=== PATIENT | male | born 1980 | race Caucasian/White ===

== ENCOUNTER 2019-02-17 14:25 | Emergency (ER) | payer MEDICAID ==
[~2019-02-17] VITALS: Ht 177.8 cm; Wt 71.4 kg
[2019-02-17 14:35] VITALS: BP 125/80
--- NOTE | 2019-02-17 14:41 | NUR ---
THIS IS A 38 YO MALE COMING IN FOR TOOTH PAIN/PRESSURE IN UPPER LEFT SIDE OF MOUTH. PATIENT DENIES EATING ANYTHING HARD, NO SPECIFIC EVENT LED TO THIS PAIN.
== END 2019-02-17 15:03 | disposition home or self-care (01) ==
LOC: ED 14:40
DX: K02.9 Dental caries, unspecified (principal); K05.10 Chronic gingivitis, plaque induced; K08.89 Other specified disorders of teeth and supporting structures; F17.200 Nicotine dependence, unspecified, uncomplicated
CPT/HCPCS: 99283

== ENCOUNTER 2019-03-24 20:22 | Emergency (ER) | payer MEDICAID ==
[~2019-03-24] VITALS: Ht 177.8 cm; Wt 69.4 kg
[2019-03-24 20:25] VITALS: BP 133/80
--- NOTE | 2019-03-24 20:56 | NUR ---
PT PRESENTED WITH C/O DENTAL PAIN ON UPPER LEFT SIDE, RADIATES UP FACE.
[2019-03-24] MEDS ORDERED: LIDOCAINE-MPF 1%, 5ML ONE (20:58)
[2019-03-24] MEDS ORDERED: BUPIVACAINE/PF 0.5% ONE (20:59)
[2019-03-24] MEDS ORDERED: LIDOCAINE 1%, 10ML INFIL ONE (21:00)
[2019-03-24] MEDS ORDERED: BUPIVACAINE 0.25% INFIL ONE (21:00)
[2019-03-24] MEDS ORDERED: BUPIVACAINE 0.25% ONE (21:01)
== END 2019-03-24 21:17 ==
LOC: ED 21:11
DX: K02.9 Dental caries, unspecified (principal); K08.89 Other specified disorders of teeth and supporting structures; F17.210 Nicotine dependence, cigarettes, uncomplicated; Z72.9 Problem related to lifestyle, unspecified
CPT/HCPCS: 64402; 99284

== ENCOUNTER 2019-03-26 05:56 | Emergency (ER) | payer MEDICAID ==
[~2019-03-26] VITALS: Ht 177.8 cm; Wt 70.0 kg
[2019-03-26 06:01] VITALS: BP 140/80
[2019-03-26] MEDS ORDERED: KETOROLAC 30 MG/1 ML ONE (06:22)
--- NOTE | 2019-03-26 06:28 | NUR ---
BURAK RUBALCAVA AT BEDSIDE PERFORMING A NERVE BLOCK. PT ALSO MEDICATED PER EMAR. 5 RIGHTS ADDRESSED
[2019-03-26] MEDS ORDERED: KETOROLAC 30 MG/1 ML IM ONE (06:30)
--- NOTE | 2019-03-26 06:52 | NUR ---
Patient/Caregiver given discharge instructions and they have confirmed that they understand the instructions. Patient ambulatory with steady gait.
== END 2019-03-26 06:54 | disposition home or self-care (01) ==
LOC: ED 06:13
DX: K08.89 Other specified disorders of teeth and supporting structures (principal); F17.210 Nicotine dependence, cigarettes, uncomplicated
CPT/HCPCS: 64400; 96372; 99284; J1885

== ENCOUNTER 2020-03-29 21:24 | Emergency (ER) | payer MEDICAID ==
[~2020-03-29] VITALS: Ht 177.8 cm; Wt 78.0 kg
[2020-03-29 21:34] VITALS: BP 120/88
[2020-03-29] MEDS ORDERED: ONDANSETRON 2MG/ML, 2ML ONE (21:50)
[2020-03-29] MEDS ORDERED: LORazepam 2 MG/ML, 1ML ONE (21:50)
[2020-03-29] MEDS ORDERED: PROMETHAZINE 25 MG/ML, 1ML ONE (21:50)
[2020-03-29] MEDS ORDERED: ONDANSETRON 2MG/ML, 2ML IVPush ONE (22:00)
[2020-03-29] MEDS ORDERED: THIAMINE 100MG TABLET PO ONE (22:00)
[2020-03-29] MEDS ORDERED: SODIUM CHLORIDE FLUSH 10ML SYR IVF ONE (22:00)
[2020-03-29] MEDS ORDERED: LORazepam 2 MG/ML, 1ML IVPush PRN (22:00)
[2020-03-29] MEDS ORDERED: SODIUM CHLORIDE 0.9% 1,000ML IVBOLUS ONE (22:00)
[2020-03-29] MEDS ORDERED: PROMETHAZINE 25 MG/ML, 1ML IM ONE (22:00)
[2020-03-29 22:18] LABS: BASOPHILS % (AUTO) 1 % (0-1); EOSINOPHILS % (AUTO) 2 % (1-7); LYMPHOCYTES % (AUTO) 31 % (22-44); MEAN CORPUSCULAR HEMOGLOBIN 31.3 pg (27.5-34.5); MEAN CORPUSCULAR HGB CONC 34.1 g/dL (33.2-36.2); MEAN PLATELET VOLUME 8.9 fL (7.4-10.4); MONOCYTES % (AUTO) 10 % (2-9); NEUTROPHILS % (AUTO) 56 % (42-75); PLATELET COUNT 91 x10^3/uL (130-400); RED BLOOD COUNT 5.47 x10^6/uL (4.38-5.82); RED CELL DISTRIBUTION WIDTH 13.8 % (9.4-14.8)
[2020-03-29 22:23] LABS: MD NO
[2020-03-29 22:24] LABS: ALANINE AMINOTRANSFERASE 65 U/L (12-78); ANION GAP 15 mmol/L (5-15); CALCIUM 8.4 mg/dL (8.5-10.1); CHLORIDE 100 mmol/L (98-107); CREATININE 0.71 mg/dL (0.7-1.3)
[2020-03-29 22:26] LABS: ALKALINE PHOSPHATASE 57 U/L (45-117); BILIRUBIN,TOTAL 0.9 mg/dL (0.2-1.0); TOTAL PROTEIN 7.8 g/dL (6.4-8.2)
== END 2020-03-30 00:13 | disposition home or self-care (01) ==
LOC: ED 21:54
DX: K29.20 Alcoholic gastritis without bleeding (principal); R11.2 Nausea with vomiting, unspecified; R10.13 Epigastric pain; R10.12 Left upper quadrant pain; F10.129 Alcohol abuse with intoxication, unspecified; F17.210 Nicotine dependence, cigarettes, uncomplicated; Y90.0 Blood alcohol level of less than 20 mg/100 ml
CPT/HCPCS: 36415; 80053; 80320; 83690; 85025; 96361; 96372; 96374; 96375; 99284; 99406; J2060; J2405; J2550; J7030; G0480

== ENCOUNTER 2020-06-03 18:45 | Inpatient (IN) | payer MEDICAID ==
[~2020-06-03] VITALS: Ht 177.8 cm; Wt 66.8 kg
[2020-06-03] MEDS ORDERED: ONDANSETRON ODT 4 MG PO ONE (19:00)
[2020-06-03 19:25] LABS: BASOPHILS % (AUTO) 0 % (0-1); EOSINOPHILS % (AUTO) 0 % (1-7); LYMPHOCYTES % (AUTO) 13 % (22-44); MEAN CORPUSCULAR HEMOGLOBIN 32.4 pg (27.5-34.5); MEAN PLATELET VOLUME 8.6 fL (7.4-10.4); MONOCYTES % (AUTO) 6 % (2-9); NEUTROPHILS % (AUTO) 82 % (42-75); PLATELET COUNT 261 x10^3/uL (130-400); RED BLOOD COUNT 5.39 x10^6/uL (4.38-5.82); RED CELL DISTRIBUTION WIDTH 15.2 % (9.4-14.8)
[2020-06-03 19:27] LABS: MD NO
[2020-06-03 19:37] LABS: ALANINE AMINOTRANSFERASE 54 U/L (12-78); ALBUMIN 5.1 g/dL (3.4-5.0); ANION GAP 21 mmol/L (5-15); CALCIUM 9.6 mg/dL (8.5-10.1); CHLORIDE 97 mmol/L (98-107); CREATININE 1.25 mg/dL (0.7-1.3)
[2020-06-03 19:39] LABS: ALKALINE PHOSPHATASE 66 U/L (45-117); BILIRUBIN,TOTAL 1.3 mg/dL (0.2-1.0); TOTAL PROTEIN 9.2 g/dL (6.4-8.2)
[2020-06-03] MEDS ORDERED: MAGNESIUM SULFATE 1 GM, THIAMINE 100 MG, FOLIC ACID 1 MG, MVI ADULT 10 ML in SODIUM CHL... IV ONE (20:30)
[2020-06-03] MEDS ORDERED: ONDANSETRON 2MG/ML, 2ML IVPush ONE (20:30)
[2020-06-03] MEDS ORDERED: SODIUM CHLORIDE 0.9% 1,000ML IVBOLUS ONE (20:30)
[2020-06-03] MEDS ORDERED: LORazepam 2 MG/ML, 1ML IVPush ONE ×2 (20:30)
[2020-06-03] MEDS ORDERED: MAGNESIUM SULFATE 1 GM, THIAMINE 100 MG, FOLIC ACID 1 MG in SODIUM CHLORIDE 0.9% 1,000 ML IV ONE (20:46)
[2020-06-03] MEDS ORDERED: MAGNESIUM SULFATE PMX 2GM/50ML 0 ML ONE (20:57)
[2020-06-03] MEDS ORDERED: ONDANSETRON 2MG/ML, 2ML ONE (20:57)
[2020-06-03] MEDS ORDERED: LORazepam 2 MG/ML, 1ML ONE ×2 (20:57→22:15)
--- NOTE | 2020-06-03 21:12 | NUR ---
PT IN BED . VERY IMPULSUVE. STATES THAT HE HASNT DRANK IN 3 DAYS .
[2020-06-03] MEDS ORDERED: METOCLOPRAMIDE 5 MG/ML, 2ML ONE (22:25)
[2020-06-03] MEDS ORDERED: METOCLOPRAMIDE 5 MG/ML, 2ML IVPush ONE (22:30)
--- NOTE | 2020-06-03 22:36 | NUR ---
Immigration Manager rosalio'd report from [place]. Patient noted to still be shaking his legs and feeling nasuea. Patient medicated per JUN.
[2020-06-03 23:02] LABS: MICROSCOPIC AUTO
[2020-06-03 23:20] VITALS: BP 126/79
[2020-06-04 01:13] VITALS: BP 138/80
[2020-06-04 05:35] LABS: BASOPHILS % (AUTO) 0 % (0-1); EOSINOPHILS % (AUTO) 0 % (1-7); LYMPHOCYTES % (AUTO) 17 % (22-44); MEAN CORPUSCULAR HEMOGLOBIN 31.7 pg (27.5-34.5); MEAN CORPUSCULAR HGB CONC 34.5 g/dL (33.2-36.2); MEAN PLATELET VOLUME 8.5 fL (7.4-10.4); MONOCYTES % (AUTO) 12 % (2-9); NEUTROPHILS % (AUTO) 71 % (42-75); PLATELET COUNT 193 x10^3/uL (130-400); RED BLOOD COUNT 4.57 x10^6/uL (4.38-5.82); RED CELL DISTRIBUTION WIDTH 15.1 % (9.4-14.8)
[2020-06-04 05:47] LABS: ANION GAP 7 mmol/L (5-15); CALCIUM 8.3 mg/dL (8.5-10.1); CHLORIDE 104 mmol/L (98-107); CREATININE 0.84 mg/dL (0.7-1.3)
[2020-06-04 06:05] LABS: MD SCAN
[2020-06-04 07:04] VITALS: BP 114/64
[2020-06-04] MEDS: POTASSIUM CHLORIDE 20 MEQ, MAGNESIUM SULFATE 1 GM, THIAMINE 200 MG, FOLIC ACID 1 MG in ... IV SCH (08:36)
[2020-06-04] MEDS: HEPARIN 5,000 UNITS/ML, 1ML SQ SCH ×2 (08:36→16:55)
[2020-06-04] MEDS: LORazepam 2 MG/ML, 1ML IVPush PRN ×4 (08:45→20:47)
[2020-06-04] MEDS: ONDANSETRON 2MG/ML, 2ML IVPush PRN ×2 (08:52→20:46)
[2020-06-04 12:26] VITALS: BP 148/77
[2020-06-04] MEDS ORDERED: MAALOX/HYOSCYAMINE/LIDOCAINE 45 ML BTL PO ONE (15:52)
[2020-06-04] MEDS ORDERED: SUCRALFATE 1 GM/10 ML UDC PO SCH (16:00)
[2020-06-04] MEDS ORDERED: SUCRALFATE 1 GM/10 ML UDC PO PRN (16:30)
[2020-06-04] MEDS: OXYcodone/APAP 5/325MG TABLET PO PRN ×2 (16:55→20:47)
[2020-06-04 19:52] VITALS: BP 140/86
[2020-06-05 00:20] VITALS: BP 114/66
[2020-06-05] MEDS: HEPARIN 5,000 UNITS/ML, 1ML SQ SCH ×3 (01:27→16:23)
[2020-06-05] MEDS: MORPHINE SULFATE 4 MG/ML, 1ML IVPush PRN ×3 (08:47→17:42)
[2020-06-05 08:57] VITALS: BP 120/74
[2020-06-05 09:09] LABS: BASOPHILS % (AUTO) 1 % (0-1); EOSINOPHILS % (AUTO) 0 % (1-7); LYMPHOCYTES % (AUTO) 28 % (22-44); MEAN CORPUSCULAR HEMOGLOBIN 31.8 pg (27.5-34.5); MEAN CORPUSCULAR HGB CONC 34.2 g/dL (33.2-36.2); MEAN PLATELET VOLUME 8.7 fL (7.4-10.4); MONOCYTES % (AUTO) 10 % (2-9); NEUTROPHILS % (AUTO) 61 % (42-75); PLATELET COUNT 176 x10^3/uL (130-400); RED BLOOD COUNT 4.62 x10^6/uL (4.38-5.82)
[2020-06-05 09:11] LABS: MD NO
[2020-06-05 09:18] LABS: ALANINE AMINOTRANSFERASE 38 U/L (12-78); ALBUMIN 4.1 g/dL (3.4-5.0); ANION GAP 9 mmol/L (5-15); CALCIUM 8.9 mg/dL (8.5-10.1); CHLORIDE 107 mmol/L (98-107); CREATININE 0.78 mg/dL (0.7-1.3)
[2020-06-05 09:21] LABS: ALKALINE PHOSPHATASE 47 U/L (45-117); BILIRUBIN,TOTAL 2.5 mg/dL (0.2-1.0); TOTAL PROTEIN 7.3 g/dL (6.4-8.2)
[2020-06-05] MEDS: POTASSIUM CHLORIDE 20 MEQ, MAGNESIUM SULFATE 1 GM, THIAMINE 200 MG, FOLIC ACID 1 MG in ... IV SCH (09:52)
[2020-06-05] MEDS ORDERED: OMNIPAQUE 350 MG/ML, 100ML BOTTLE ONE (10:41)
[2020-06-05] MEDS: OXYcodone/APAP 5/325MG TABLET PO PRN ×2 (10:52→22:03)
[2020-06-05] MEDS: PROMETHAZINE 25MG TABLET PO PRN ×2 (10:53→22:02)
[2020-06-05] MEDS: CHLORDIAZEPOXIDE 25 MG CAPSULE PO PRN ×2 (13:32→22:03)
[2020-06-05 13:58] VITALS: BP 117/74
[2020-06-05] MEDS ORDERED: PANTOPRAZOLE 40MG TABLET PO ONE (15:54)
[2020-06-05] MEDS: SUCRALFATE 1 GM/10 ML UDC PO PRN (16:22)
[2020-06-05] MEDS: ONDANSETRON 2MG/ML, 2ML IVPush PRN (17:42)
[2020-06-05 18:56] VITALS: BP 122/79
[2020-06-06] MEDS: HEPARIN 5,000 UNITS/ML, 1ML SQ SCH ×3 (01:00→16:32)
[2020-06-06 01:36] VITALS: BP 119/70
[2020-06-06] MEDS: ONDANSETRON 2MG/ML, 2ML IVPush PRN ×2 (02:33→08:43)
[2020-06-06] MEDS: MORPHINE SULFATE 4 MG/ML, 1ML IVPush PRN (02:34)
[2020-06-06 07:09] LABS: ALANINE AMINOTRANSFERASE 49 U/L (12-78); ALBUMIN 3.9 g/dL (3.4-5.0); ANION GAP 7 mmol/L (5-15); CALCIUM 8.7 mg/dL (8.5-10.1); CHLORIDE 105 mmol/L (98-107); CREATININE 0.82 mg/dL (0.7-1.3)
[2020-06-06 07:11] LABS: ALKALINE PHOSPHATASE 47 U/L (45-117); BILIRUBIN,TOTAL 1.8 mg/dL (0.2-1.0); TOTAL PROTEIN 7.3 g/dL (6.4-8.2)
[2020-06-06 07:15] LABS: BASOPHILS % (AUTO) 1 % (0-1); EOSINOPHILS % (AUTO) 1 % (1-7); LYMPHOCYTES % (AUTO) 47 % (22-44); MEAN CORPUSCULAR HEMOGLOBIN 31.7 pg (27.5-34.5); MEAN CORPUSCULAR HGB CONC 33.8 g/dL (33.2-36.2); MEAN PLATELET VOLUME 9.2 fL (7.4-10.4); MONOCYTES % (AUTO) 11 % (2-9); NEUTROPHILS % (AUTO) 41 % (42-75); PLATELET COUNT 167 x10^3/uL (130-400); RED BLOOD COUNT 4.64 x10^6/uL (4.38-5.82)
[2020-06-06 07:33] LABS: MD NO
[2020-06-06 07:51] VITALS: BP 132/82
[2020-06-06] MEDS: OXYcodone/APAP 5/325MG TABLET PO PRN ×3 (08:43→23:16)
[2020-06-06] MEDS: PANTOPRAZOLE 40MG TABLET PO SCH (08:44)
[2020-06-06] MEDS: CHLORDIAZEPOXIDE 25 MG CAPSULE PO PRN ×2 (12:06→21:09)
[2020-06-06 13:16] VITALS: BP 115/77
[2020-06-06 20:26] VITALS: BP 124/76
[2020-06-06] MEDS: SUCRALFATE 1 GM/10 ML UDC PO PRN (21:09)
[2020-06-07 02:05] VITALS: BP 118/72
[2020-06-07] MEDS: HEPARIN 5,000 UNITS/ML, 1ML SQ SCH ×2 (05:12→12:23)
[2020-06-07] MEDS: PANTOPRAZOLE 40MG TABLET PO SCH (05:12)
[2020-06-07] MEDS: OXYcodone/APAP 5/325MG TABLET PO PRN (06:33)
[2020-06-07] MEDS: CHLORDIAZEPOXIDE 25 MG CAPSULE PO PRN (06:33)
[2020-06-07 07:08] VITALS: BP 120/79
[2020-06-07] MEDS ORDERED: THIAMINE 100MG TABLET PO SCH (09:00)
[2020-06-07] MEDS ORDERED: PANT40TA6 PO (09:00)
[2020-06-07] MEDS ORDERED: THIA100T67 PO (09:00)
[2020-06-07] MEDS ORDERED: FOLIC ACID 1 MG TABLET PO SCH (09:00)
[2020-06-07] MEDS ORDERED: SUCR1ORA5 PO (09:00)
[2020-06-07] MEDS ORDERED: FOLI1TAB32 PO (09:00)
[2020-06-07 10:00] LABS: OCCULT BLOOD POSITIVE (NEGATIVE)
== END 2020-06-07 12:38 | disposition home or self-care (01) | DRG 369 ==
LOC: ED 21:36 → EDIP 22:34 → 4WST 23:15 → DCLOUNGE 06-07 12:29
PROVIDERS: ADMIT Internal Medicine; ATTEND Family Medicine
DX: K22.6 Gastro-esophageal laceration-hemorrhage syndrome (principal); F10.231 Alcohol dependence with withdrawal delirium; M48.54XA Collapsed vertebra, not elsewhere classified, thoracic region, initial encounter for fracture; N44.00 Torsion of testis, unspecified; E86.0 Dehydration; K92.0 Hematemesis; F12.90 Cannabis use, unspecified, uncomplicated; F17.210 Nicotine dependence, cigarettes, uncomplicated; K70.9 Alcoholic liver disease, unspecified; K76.0 Fatty (change of) liver, not elsewhere classified; Z79.899 Other long term (current) drug therapy; Z79.891 Long term (current) use of opiate analgesic; Z79.01 Long term (current) use of anticoagulants; Z71.6 Tobacco abuse counseling
CPT/HCPCS: 36415; 96374; 96375; 96376; 99285; Q0169; 74177; 80048; 80053; 80074; 81001; 82272; 83690; 83735; 84100; 85025; 93005; G0378; J1644; J2405; J3411; J3475; J3480; Q9967; J2060; J2270; J2765; J7030

== ENCOUNTER 2020-06-18 01:32 | Emergency (ER) | payer MEDICAID ==
[~2020-06-18] VITALS: Ht 177.8 cm; Wt 61.5 kg
[~2020-06-18 01:32] MED LIST: FOLI1TAB32 PO; PANT40TA6 PO; SUCR1ORA5 PO; THIA100T67 PO
--- NOTE | 2020-06-18 01:53 | NUR ---
patient BIB [facility] for abdominal pain. bilateral pupils are 5mm. white residue covering tongue. patient reports being alcohol free for ~ 1 year but was recently in [facility] for alcohol withdrawal. call coello in reach. patient has mild tremors on arrival. safety maintained. will continue to monitor.
[2020-06-18] MEDS ORDERED: KETOROLAC 30 MG/1 ML ONE (02:18)
[2020-06-18] MEDS ORDERED: ONDANSETRON 2MG/ML, 2ML ONE (02:19)
[2020-06-18 02:22] LABS: BASOPHILS % (AUTO) 1 % (0-1); MEAN CORPUSCULAR HEMOGLOBIN 32.7 pg (27.5-34.5); MEAN CORPUSCULAR HGB CONC 34.9 g/dL (33.2-36.2)
[2020-06-18 02:25] LABS: EOSINOPHILS % (AUTO) 1 % (1-7); LYMPHOCYTES % (AUTO) 23 % (22-44); MEAN PLATELET VOLUME 8.3 fL (7.4-10.4); MONOCYTES % (AUTO) 6 % (2-9); NEUTROPHILS % (AUTO) 70 % (42-75); PLATELET COUNT 275 x10^3/uL (130-400); RED BLOOD COUNT 5.75 x10^6/uL (4.38-5.82); RED CELL DISTRIBUTION WIDTH 15.6 % (9.4-14.8)
--- NOTE | 2020-06-18 02:27 | NUR ---
1ST CONTACT C PT. LABS DRAWN & SENT. PT REFUSING ATIVAN..."IM NOT ANXIOUS..I NEED SOMETHING FOR MY FUCKING STOMACH PAIN..IS HE NOT GIVING ME ANYTHING BECAUSE IM AN ALCOHOLIC". ATTEMPTING TO CALM PT, AWARE THIS RN WILL ASK FOR PAIN MEDS.
[2020-06-18 02:29] LABS: MD NO
[2020-06-18] MEDS ORDERED: SODIUM CHLORIDE 0.9% 1,000ML IVBOLUS ONE (02:30)
[2020-06-18] MEDS ORDERED: LORazepam 2 MG/ML, 1ML IVPush ONE (02:30)
[2020-06-18] MEDS ORDERED: ONDANSETRON 2MG/ML, 2ML IVPush ONE (02:30)
[2020-06-18] MEDS ORDERED: KETOROLAC 30 MG/1 ML IVPush ONE (02:30)
--- NOTE | 2020-06-18 02:32 | NUR ---
JIMMY, GIRLFRIEND, . PT GIVES PERMISSION TO SPEAK C THIS PERSON.
[2020-06-18 02:33] LABS: ALANINE AMINOTRANSFERASE 82 U/L (12-78); ALBUMIN 4.4 g/dL (3.4-5.0); ANION GAP 14 mmol/L (5-15); CALCIUM 8.5 mg/dL (8.5-10.1); CHLORIDE 106 mmol/L (98-107); CREATININE 0.83 mg/dL (0.7-1.3)
[2020-06-18 02:44] LABS: ALKALINE PHOSPHATASE 82 U/L (45-117); BILIRUBIN,TOTAL 0.8 mg/dL (0.2-1.0); TOTAL PROTEIN 8.6 g/dL (6.4-8.2)
[2020-06-18] MEDS ORDERED: LORazepam 2 MG/ML, 1ML ONE (02:44)
--- NOTE | 2020-06-18 03:04 | NUR ---
patient requesting pain medication. i have notified dr. roberts that patient states pain is now radiating into patient's chest per his report during my rounding. patient is agitated that he is not receiving pain medications at this time. he states he is not intoxicated and is not withdrawing. patient states "you gave me pain medications last time i was here. the doctors gave me percocets". I explained to the patient that pain medication is not a longterm fix for this diagnosis of his esophageal tear and the concern that needs to be discussed is detoxing from alcohol and alcohol cessation. patient becomes agitated and asks for the doctor to come to bedside "because i need pain meds. you gave them to me last time. i want percocets".
--- NOTE | 2020-06-18 03:40 | NUR ---
Dr. Roberts and this RN in to room to discuss patient's repeated requests for percocet's. Dr. Roberts notified patient and fiance at bedside that patient's ETOH level was dangerously high and importance of alcohol cessation. patient complains of worsening pain. recommendations from dr. roberts include PPI and detox rehab program. fiance at bedside agrees and states "i can take him straight to right now because I cant do this anymore". Patient verbally accepts PPI. these will be ordered and resources will be refered to patient for rehab detox facilities for alcohol. safety maintained. call coello in reach. will continue to monitor.
[2020-06-18] MEDS ORDERED: MAALOX/HYOSCYAMINE/LIDOCAINE 45 ML BTL ONE (03:45)
[2020-06-18] MEDS ORDERED: FAMOTIDINE 20 MG/2 ML ONE (03:46)
[2020-06-18] MEDS ORDERED: FAMOTIDINE 20 MG/2 ML IVPush ONE (04:00)
[2020-06-18] MEDS ORDERED: MAALOX/HYOSCYAMINE/LIDOCAINE 45 ML BTL PO ONE (04:00)
--- NOTE | 2020-06-18 04:06 | NUR ---
discharge instructions reviewed with patient and patient's fiance at bedside. no further questions. resource sheet for addiction community resources and behavior/addiction detox facilities provided and reviewed. prescription handed directly to patient who handed it to lisette. patient has steady gait with intermittent minor stumbling on ambulation to lobby. lisette is patient's designated corrugated fastener driver and designated responsible person on discharge. lisette states she is packing a bag for patient and bringing him to [place] today for detox and rehab. This option was also highly recommended from RN and MD during this visit. IV removed per dc protocol. VS remain stable on RA. all personal belongings with patient on dc including cell phone
[2020-06-18 04:09] VITALS: BP 144/68
== END 2020-06-18 04:11 | disposition home or self-care (01) ==
LOC: ED 02:23
DX: K29.20 Alcoholic gastritis without bleeding (principal); F10.10 Alcohol abuse, uncomplicated; R10.13 Epigastric pain; R11.10 Vomiting, unspecified; Y90.9 Presence of alcohol in blood, level not specified
CPT/HCPCS: 36415; 80053; 80320; 83690; 85025; 96361; 96374; 96375; 99284; J1885; J2060; J2405; J7030; G0480

== ENCOUNTER 2020-07-17 14:01 | Emergency (ER) | payer MEDICAID ==
[~2020-07-17] VITALS: Ht 177.8 cm; Wt 65.0 kg
[2020-07-17 14:12] VITALS: BP 129/81
--- NOTE | 2020-07-17 14:18 | NUR ---
PT CHANGED HIS CHIEF COMPLAINT FROM WHAT HE TOLD VALENTINA. PT STATES, TO THIS RN AND EDPA, HE HAS BEEN COUGHING X1WEEK WITH VUONG COLORED PHLEM AND HE HAS NOT BEEN VOMITTING. PT STATES OTHERS AT HOME HAVE BEEN SICK AND ONE MEMBER OF FAMILY WORKS AROUND COVID PTS. PT CONNECTED TO MONITORING. CALL LIGHT IN REACH. LITER OF NS THAT WAS STARTED BY VALENTINA TO CONTINUE INFUSING.
--- NOTE | 2020-07-17 14:35 | NUR ---
[employer] NOTIFIED THIS RN THAT PT "FLIPPED OFF" THIS RN WITH HIS MIDDLE FINGER AND USED PROFANITIES AFTER THIS RN REMINDED PT TO REPLACE MASK. EDPA NOTIFIED.
--- NOTE | 2020-07-17 14:47 | NUR ---
ERPA AT BEDSIDE TO SWAB FOR COVID. HIDE INSPECTOR AND SORTER AT BEDSIDE FOR EKG.
--- NOTE | 2020-07-17 15:18 | NUR ---
PT STATES HE IS CALLING HIS GIRLFRIEND FOR RIDE.
--- NOTE | 2020-07-17 15:25 | NUR ---
PT IS REFUSING TO GET DRESSED AND LEAVE AFTER DC PAPERWORK EXPLAINED.
--- NOTE | 2020-07-17 15:30 | NUR ---
PT ESCORTED OUT OF FACILITY WITH SECURITY WITH STEADY GAIT.
== END 2020-07-17 15:32 | disposition home or self-care (01) ==
LOC: ED 14:54
DX: R06.00 Dyspnea, unspecified (principal); J00 Acute nasopharyngitis [common cold]; Z20.822 Contact with and (suspected) exposure to COVID-19
CPT/HCPCS: 71045; 93005; 99285; U0003

== ENCOUNTER 2020-08-28 15:15 | Emergency (ER) | payer MEDICAID ==
[~2020-08-28] VITALS: Ht 180.3 cm; Wt 70.0 kg
--- NOTE | 2020-08-28 15:34 | NUR ---
clothing in belongings locker, 1 bag. charge account clerk informed of need for sitter. no physical complaints, SI. sts past attempt in past with his parents car. pt sleeping on stretcher. sts hx sz rt etoh. has been drinking heavily x2 wks. as
--- NOTE | 2020-08-28 16:20 | NUR ---
sitter in place nad. as
--- NOTE | 2020-08-28 16:56 | NUR ---
pt aware of need for ua. nad. as
[2020-08-28 17:19] LABS: MEAN CORPUSCULAR HEMOGLOBIN 32.6 pg (27.5-34.5); MEAN CORPUSCULAR HGB CONC 34.1 g/dL (33.2-36.2); MEAN PLATELET VOLUME 8.2 fL (7.4-10.4); PLATELET COUNT 220 x10^3/uL (130-400); RED BLOOD COUNT 5.24 x10^6/uL (4.38-5.82); RED CELL DISTRIBUTION WIDTH 14.3 % (9.4-14.8)
[2020-08-28 17:30] LABS: ALBUMIN 4.4 g/dL (3.4-5.0); ANION GAP 9 mmol/L (5-15); CALCIUM 8.7 mg/dL (8.5-10.1); CHLORIDE 108 mmol/L (98-107)
[2020-08-28 17:31] LABS: CREATININE 0.67 mg/dL (0.7-1.3)
[2020-08-28 17:38] LABS: SALICYLATE LEVEL < 1.7 mg/dL (2.8-20.0)
[2020-08-28 17:42] LABS: MD YES
[2020-08-28 17:45] LABS: <PLATELET ESTIMATE> ADEQUATE; EOS#(MANUAL) 0.12 x10^3/uL (0.0-0.4); EOS% (MANUAL) 2 % (1-7); LYMPH#(MANUAL) 2.66 x10^3/uL (1-3.4); LYMPHS% (MANUAL) 45 % (22-44); MONOS#(MANUAL) 0.47 x10^3/uL (0.3-2.7); MONOS% (MANUAL) 8 % (2-9); REACTIVE LYMPHS # (MANUAL) 0.12 x10^3/uL (0-0); REACTIVE LYMPHS % (MANUAL) 2 % (0-0); SEG#(MANUAL) 2.54 x10^3/uL (1.8-6.8); SEGS% (MANUAL) 43 % (42-75)
[2020-08-28 17:47] LABS: <PLT MORPHOLOGY> NORMAL PLT MORPH; <RBC MORPHOLOGY> NORMAL
--- NOTE | 2020-08-28 18:07 | NUR ---
REPORT TO CHERYL PERALTA.
[2020-08-28 18:14] LABS: AMPHETAMINE SCREEN, URINE Negative (Negative); BARBITURATE SCREEN, URINE Negative (Negative); BENZODIAZEPINE SCREEN, URINE Negative (Negative); CANNABINOID SCREEN, URINE Positive (Negative); COCAINE SCREEN, URINE Negative (Negative); METHADONE SCREEN, URINE Negative (Negative); OPIATE SCREEN, URINE Negative (Negative)
--- NOTE | 2020-08-28 18:14 | NUR ---
RECEIVED REPORT NIHSANT COOK RN. PT MOVED TO ROOM 38. ROOM SECURED. SITTER AT BEDSIDE.
--- NOTE | 2020-08-28 18:27 | NUR ---
PT RESTING ON KIRSTEN. ANDI. PT STATES " I DON'T WANT TO LIVE ANYMORE". WHEN ASKED IF HE HAD A PLAN PT STATES "WELL [place] BUT NOT REALLY". PT VAGUE. NOT MAKING EYE CONTACT. PT HAS SZ PRECAUTIONS IN PLACE PT STATES WHEN HE WITHDRAWS FROM ETOH PT HAS SZ.
--- NOTE | 2020-08-28 18:41 | NUR ---
PT PLACED ON MONITORS. SITTER AWARE.
--- NOTE | 2020-08-28 18:57 | NUR ---
PT PROVIDED W/ SI DINNER TRAY.
--- NOTE | 2020-08-28 19:05 | NUR ---
PT RESTING ON GURNEY. NADN. VSS. PT BREATHALYZER REMAINS ELEVATED. SITTER REMAINS AT BEDSIDE. ROOM REMAINS SECURE. PT IS ON MONITORS. SITTER AWARE.
--- NOTE | 2020-08-28 20:04 | NUR ---
PT SLEEPING ON GURESTELLA. ANDI. SITTER REMAINS AT BEDSIDE. ROOM REMAINS SECURE.
--- NOTE | 2020-08-28 20:47 | NUR ---
PT STARTING TO GET ANXIOUS IN ROOM AND YELLED "I WANT TO GO HOME". SPOKE W/ ERP DR. LANIER. AWAITING NEW ORDERS.
[2020-08-28] MEDS ORDERED: LORazepam 1MG TABLET ONE (20:48)
[2020-08-28] MEDS ORDERED: LORazepam 1MG TABLET PO ONE (21:00)
--- NOTE | 2020-08-28 21:05 | NUR ---
REPORT GIVEN TO HANNY DYE RN.
--- NOTE | 2020-08-28 22:29 | NUR ---
PT AMBULATED TO RESTROOM WITH STEADY GAIT. PT MOVED TO ROOM 39 FOR TV. WATER PROVIDED REQUESTED. SITTER AT DOORWAY AND WILL CONT TO MONITOR.
--- NOTE | 2020-08-28 23:22 | NUR ---
PT SLEEPING ON GURNEY WITH TV AND LIGHTS OFF. SITTER AT DOORWAY AND WILL CONT TO MONITOR.
--- NOTE | 2020-08-29 02:35 | NUR ---
PT SLEEPING ON GUNEY, NO ACUTE DISTRESS NOTED. SITTER OUTSIDE DOOR AND WILL CONT TO MONITOR.
--- NOTE | 2020-08-29 03:46 | NUR ---
PT EASILY AWAKENS TO VOICE. VS DONE AND STABLE. DOOR CLOSED FOR COMFORT, PT STILL VISABLE TO SITTER.
[2020-08-29 03:47] VITALS: BP 103/75
== END 2020-08-29 06:49 | disposition home or self-care (01) ==
LOC: ED 16:38
DX: R45.851 Suicidal ideations (principal); F10.220 Alcohol dependence with intoxication, uncomplicated; F17.200 Nicotine dependence, unspecified, uncomplicated; Y90.0 Blood alcohol level of less than 20 mg/100 ml
CPT/HCPCS: 36415; 80048; 80299; 80307; 80320; 80329; 82040; 85025; 99283; G0480

== ENCOUNTER 2020-10-05 08:18 | Emergency (ER) | payer MEDICAID ==
[~2020-10-05] VITALS: Ht 177.8 cm; Wt 69.2 kg
--- NOTE | 2020-10-05 08:30 | NUR ---
pt presents to ed with c/o l sided dental pain x1 month. denies any trauma to head/face. pt a&o, resps even and unlabored, vss, nadn. erpa johanna at bedside for eval.
[2020-10-05] MEDS ORDERED: ACETAMINOPHEN 500 MG TABLET ONE (08:38)
[2020-10-05 08:47] VITALS: BP 120/85
--- NOTE | 2020-10-05 08:58 | NUR ---
pt educated on discharge instructions, prescription, and follow-up, verbalized understanding. ambulatory to discharge with steady gait, tingn.
[2020-10-05] MEDS ORDERED: ACETAMINOPHEN 500 MG TABLET PO ONE (09:00)
== END 2020-10-05 09:00 | disposition home or self-care (01) ==
LOC: ED 08:21
DX: K04.7 Periapical abscess without sinus (principal); K02.9 Dental caries, unspecified; Z76.0 Encounter for issue of repeat prescription
CPT/HCPCS: 99282; 99283

== ENCOUNTER 2020-10-28 06:06 | Emergency (ER) | payer MEDICAID ==
[~2020-10-28] VITALS: Ht 177.8 cm; Wt 70.8 kg
[2020-10-28 06:07] VITALS: BP 104/72
--- NOTE | 2020-10-28 06:29 | NUR ---
pt presents with sore throat and cough. pt said he needs a note for work. pt resting on [facility].
--- NOTE | 2020-10-28 06:30 | NUR ---
Patient given discharge instructions and they have confirmed that they understand the instructions. Patient ambulatory with steady gait.
== END 2020-10-28 06:32 | disposition home or self-care (01) ==
LOC: ED 06:20
DX: J02.9 Acute pharyngitis, unspecified (principal); F17.210 Nicotine dependence, cigarettes, uncomplicated
CPT/HCPCS: 99281; 99406

== ENCOUNTER 2020-12-08 13:02 | Emergency (ER) | payer MEDICAID ==
[~2020-12-08] VITALS: Ht 180.3 cm; Wt 68.0 kg
--- NOTE | 2020-12-08 14:53 | NUR ---
CALLED FOR TRIAGE, NO ANSWER
[2020-12-08 14:57] VITALS: BP 108/64
--- NOTE | 2020-12-08 15:36 | NUR ---
KHADAR SUMNER AT BEDSIDE.
--- NOTE | 2020-12-08 16:05 | NUR ---
Patient given discharge instructions and they have confirmed that they understand the instructions. Patient ambulatory with steady gait.
== END 2020-12-08 16:06 | disposition home or self-care (01) ==
LOC: ED 15:30
DX: K08.89 Other specified disorders of teeth and supporting structures (principal); F17.210 Nicotine dependence, cigarettes, uncomplicated
CPT/HCPCS: 99406